=== PATIENT | female | born 1985 | race Two or more races ===

== ENCOUNTER 2022-08-23 19:24 | Emergency (ER) | payer MEDICAID ==
[~2022-08-23] VITALS: Ht 154.9 cm; Wt 66.0 kg
[2022-08-23 22:34] VITALS: BP 129/72
== END 2022-08-23 22:36 | disposition home or self-care (01) ==
LOC: ER 19:24
DX: S93.401A Sprain of unspecified ligament of right ankle, initial encounter (principal); W18.39XA Other fall on same level, initial encounter; Y93.89 Activity, other specified; Y92.89 Other specified places as the place of occurrence of the external cause; Y99.8 Other external cause status
CPT/HCPCS: 73610; 73630